=== PATIENT | male | born 1975 | race African-American/Black ===

== ENCOUNTER 2017-04-04 11:44 | Emergency (ER) | payer SELFPAY ==
[~2017-04-04 11:44] MED LIST: ADVIL PO; MICROZIDE PO; NORV10 PO; [UNRECOGNIZED DRUG - REMARK] TOP
== END 2017-04-04 12:59 | disposition home or self-care (01) ==
LOC: ER 11:44
DX: J02.9 Acute pharyngitis, unspecified (principal); I10 Essential (primary) hypertension; Z79.899 Other long term (current) drug therapy
CPT/HCPCS: 87070; 87880; 99283; A9270-GY